=== PATIENT | female | born 1960 | race Caucasian/White ===

== ENCOUNTER → 2017-02-04 | Outpatient (CLI) | payer BC ==
--- NOTE | ~2017-02-04 | US136 ---
[facility] A Service of [facility] & [facility] RADIOLOGY TEXT RESULTS PATIENT: ORACIO GRIFFIN LOCATION: CNIV : 56 UNIT #: [id number] AGE: [address]: Anne Sharma MD SEX: F ORDER DR: [id number] [facility] [address] [place], [place] [address] [id number] O MR#: [id number] Acc #: [id number] NAME: ORACIO GRIFFIN : 1960 SEX: F STUDY DATE/TIME: 02/04/2017 10:27 UNIT: CNIV ROOM: STUDY DESCRIPTION: US U/L Ext Art Study [facility] Bil Attending Physician: Anne Sharma M.D. Referring Physician: Anne Sharma M.D. Ordering Physician: Anne Sharma M.D. Primary Care Physician: Anne Sharma M.D. MEDICAL IMAGING REPORT This report is preliminary unless electronic signature is present EXAM Bilateral lower extremity DAYNE, 02/04/2017 HISTORY Claudication FINDINGS The right brachial pressure is 189, left is 180. Right dorsalis pedis pressure is 170, posterior tibial 166 for an DAYNE of 0.9 and a first toe pressure of 79 mmHg. Left dorsalis pedis pressure is 86 and posterior tibial is 94 for an DAYNE of 0.5 with a left first toe pressure of 33 mmHg. PVR waveform are normal at the right ankle and severely diminished at the left ankle. Digital waveforms appear to be of greater amplitude in the right first toe as compared to the left first toe. Arterial waveforms appear to be triphasic at the right posterior tibial artery as well as dorsalis pedis artery. There are monophasic waveforms at the left dorsalis pedis and posterior tibial arteries. IMPRESSION 1. No arterial insufficiency of the right lower extremity with adequate perfusion of the first toe. 2. Severe arterial insufficiency of the left lower extremity with diminished perfusion of the first toe consistent with significant small vessel disease or more significant proximal arterial occlusive disease. Dictated by... Heather Schmidt M.D. THIS IS AN ELECTRONICALLY VERIFIED REPORT Heather Schmidt M.D. at 02/07/2017 6:33 AM KEVN/joel [facility]. [facility] A Service of [facility] RADIOLOGY TEXT RESULTS PATIENT: ORACIO GRIFFIN LOCATION: CNIV : 56 UNIT #: [id number] AGE: [address]: Anne Sharma MD SEX: F ORDER DR: TD: 02/04/2017 15:23 JOB #: [id number] MEDICAL IMAGING REPORT Page 1 of 1 COPY
== END | disposition home or self-care (01) ==
LOC: CNIV 10:19
DX: I73.9 Peripheral vascular disease, unspecified (principal)
CPT/HCPCS: 93922

== ENCOUNTER → 2017-03-11 | Outpatient (CLI) | payer BC ==
[2017-03-11 13:55] LABS: CREATININE SERUM 0.6 mg/dL (0.6-1.4); GLOM FILT RATE Estimated 100.5 mL/min (>60)
== END | disposition home or self-care (01) ==
LOC: CLAB 12:56
PROVIDERS: Surgery Vascular Surgery
DX: I73.9 Peripheral vascular disease, unspecified (principal)
CPT/HCPCS: 36415; 82565